=== PATIENT | male | born 1965 | race Caucasian/White ===

== ENCOUNTER → 2018-05-23 15:54 | Outpatient (CLI) | payer OTHER, SELFPAY ==
[2018-05-23 17:05] LABS: Hemoglobin A1c 7.4 % (4.2-6.3)
== END ==
PROVIDERS: Family Provider Family Medicine; PCP Family Medicine; Visit Provider Family Medicine
DX: E11.9 Type 2 diabetes mellitus without complications (principal)
CPT/HCPCS: 36415; 83036

== ENCOUNTER → 2018-08-01 10:22 | Outpatient (CLI) | payer OTHER, SELFPAY ==
[2018-08-01 12:26] LABS: Cholesterol 218 mg/dL (200); High Density Lipoprotein 55 mg/dL; Triglycerides 72 mg/dL; Very Low Density Lipoprotein 14 mg/dL (5-40)
== END ==
PROVIDERS: Family Provider Family Medicine; PCP Family Medicine; Referring Provider Family Medicine; Visit Provider Family Medicine
DX: E11.9 Type 2 diabetes mellitus without complications (principal)
CPT/HCPCS: 36415; 80061; 83036

== ENCOUNTER → 2018-10-29 08:10 | Outpatient (CLI) | payer OTHER, SELFPAY ==
[2018-10-29 10:04] LABS: Hemoglobin A1c 8.1 % (4.2-6.3)
[2018-10-29 10:22] LABS: Cholesterol 165 mg/dL (200); High Density Lipoprotein 57 mg/dL; Triglycerides 55 mg/dL; Very Low Density Lipoprotein 11 mg/dL (5-40)
== END ==
PROVIDERS: Family Provider Family Medicine; PCP Family Medicine; Referring Provider Family Medicine; Visit Provider Family Medicine
DX: E11.9 Type 2 diabetes mellitus without complications (principal)
CPT/HCPCS: 36415; 80061; 83036

== ENCOUNTER → 2019-08-23 11:08 | Outpatient (CLI) | payer OTHER, SELFPAY ==
[2019-08-15 16:27] VITALS: BMI 22.8
[2019-08-23 12:38] LABS: ALB/GLOB Ratio 1.4 RATIO (0.9-2.4); AST(SGOT) 11 U/L (15-37); Alanine Aminotransfer ALT/SGPT 22 U/L (16-61); Alkaline Phosphatase 64 U/L (45-117); Anion Gap 5 (5-15); BUN 17 mg/dL (7-18); BUN/Creat Ratio 17.1 RATIO (10-20); Calcium,Total 8.9 mg/dL (8.5-10.1); Chloride 104 mmol/L (98-107); Creatinine, Serum 0.99 mg/dL (0.70-1.30); EST Glomerular Filtration Rate 84 mL/min (>60); Est Glom Filt Rate - Afr Amer 101 mL/min (>60); Globulin 2.9 g/dL (2.2-4.2); Glucose 202 mg/dL (74-106); Potassium 4.7 mmol/L (3.5-5.1); Protein, Total 6.9 g/dL (6.4-8.2); Sodium Level 137 mmol/L (136-145)
[2019-08-23 12:56] LABS: Microalbumin,Random Urine 11.3 mg/L (NO RANGE EST.); Microalbumin:Creatinine Ratio 14.4 mg/g CRE (<30 mg/g CRE)
== END ==
PROVIDERS: Family Provider Family Medicine; PCP Family Medicine; Visit Provider Family Medicine
DX: E11.9 Type 2 diabetes mellitus without complications (principal)
CPT/HCPCS: 36415; 80053; 82043; 82570

== ENCOUNTER → 2019-11-17 08:32 | Outpatient (CLI) | payer OTHER, SELFPAY ==
[2019-11-14 16:45] VITALS: BMI 22.8
[2019-11-17 13:13] LABS: PSA,Total - Annual Screen 0.81 ng/mL (0.00-4.00)
== END ==
PROVIDERS: PCP Family Medicine; Referring Provider Family Medicine; Visit Provider Family Medicine
DX: R35.8 Other polyuria (principal); R35.0 Frequency of micturition
CPT/HCPCS: 36415; 84153; G0103

== ENCOUNTER → 2020-11-07 16:01 | Outpatient (CLI) | payer OTHER, SELFPAY ==
[2020-11-07 15:30] VITALS: BMI 23.1
[2020-11-07 17:09] LABS: Microalbumin:Creatinine Ratio 8.7 mg/g CRE (<30 mg/g CRE)
[2020-11-07 17:36] LABS: ALB/GLOB Ratio 1.4 RATIO (0.9-2.4); AST(SGOT) 10 U/L (15-37); Alanine Aminotransfer ALT/SGPT 26 U/L (16-61); Alkaline Phosphatase 60 U/L (45-117); Anion Gap 4 (5-15); BUN 17 mg/dL (7-18); BUN/Creat Ratio 18.3 RATIO (10-20); Calcium,Total 8.6 mg/dL (8.5-10.1); Chloride 104 mmol/L (98-107); Cholesterol 204 mg/dL (200); Creatinine, Serum 0.93 mg/dL (0.70-1.30); EST Glomerular Filtration Rate 90 mL/min (>60); Est Glom Filt Rate - Afr Amer 109 mL/min (>60); Globulin 2.9 g/dL (2.2-4.2); Glucose 139 mg/dL (74-106); High Density Lipoprotein 65 mg/dL; Potassium 4.2 mmol/L (3.5-5.1); Protein, Total 6.9 g/dL (6.4-8.2); Sodium Level 137 mmol/L (136-145); Triglycerides 89 mg/dL; Very Low Density Lipoprotein 18 mg/dL (5-40)
== END ==
PROVIDERS: PCP Family Medicine; Referring Provider Family Medicine; Visit Provider Family Medicine
DX: E11.9 Type 2 diabetes mellitus without complications (principal)
CPT/HCPCS: 36415; 80053; 80061; 82043; 82570

== ENCOUNTER 2021-12-04 08:50 | Outpatient (CLI) | payer OTHER, SELFPAY ==
[2021-12-04 12:23] LABS: ALB/GLOB Ratio 1.3 RATIO (0.9-2.4); AST(SGOT) 10 U/L (15-37); Alanine Aminotransfer ALT/SGPT 22 U/L (16-61); Alkaline Phosphatase 61 U/L (45-117); Anion Gap 4 (5-15); BUN 16 mg/dL (7-18); BUN/Creat Ratio 16.4 RATIO (10-20); Calcium,Total 8.7 mg/dL (8.5-10.1); Chloride 105 mmol/L (98-107); Cholesterol 175 mg/dL (200); Creatinine, Serum 0.98 mg/dL (0.70-1.30); EST Glomerular Filtration Rate 85 mL/min (>60); Est Glom Filt Rate - Afr Amer 102 mL/min (>60); Glucose 213 mg/dL (74-106); High Density Lipoprotein 67 mg/dL; Potassium 4.3 mmol/L (3.5-5.1); Sodium Level 137 mmol/L (136-145); Triglycerides 105 mg/dL; Very Low Density Lipoprotein 21 mg/dL (5-40)
[2021-12-04 12:33] LABS: Microalbumin,Random Urine < 5.0 mg/L (NO RANGE EST.)
== END 2021-12-04 23:59 | disposition home or self-care (01) ==
LOC: BIMLAB 08:51
PROVIDERS: PCP Family Medicine; Referring Provider Family Medicine; Visit Provider Family Medicine
DX: E11.9 Type 2 diabetes mellitus without complications (principal)
CPT/HCPCS: 36415; 80053; 80061; 82043; 82570

== ENCOUNTER → 2023-01-28 | Outpatient (CLI) | payer OTHER, SELFPAY ==
[2023-01-28 17:02] LABS: ALB/GLOB Ratio 1.4 RATIO (0.9-2.4); AST(SGOT) 9 U/L (15-37); Alanine Aminotransfer ALT/SGPT 22 U/L (16-61); Albumin, Serum 4.1 g/dL (3.2-5.0); Alkaline Phosphatase 64 U/L (45-117); Anion Gap 3 (5-15); BUN 18 mg/dL (7-18); BUN/Creat Ratio 17.5 RATIO (10-20); Calcium,Total 8.7 mg/dL (8.5-10.1); Chloride 106 mmol/L (98-107); Cholesterol 176 mg/dL (200); Creatinine, Serum 1.03 mg/dL (0.70-1.30); EST Glomerular Filtration Rate 79 mL/min (>60); Est Glom Filt Rate - Afr Amer 96 mL/min (>60); Globulin 2.9 g/dL (2.2-4.2); Glucose 217 mg/dL (74-106); High Density Lipoprotein 74 mg/dL; Potassium 4.3 mmol/L (3.5-5.1); Sodium Level 136 mmol/L (136-145); Triglycerides 122 mg/dL; Very Low Density Lipoprotein 24 mg/dL (5-40)
[2023-01-28 17:14] LABS: Microalbumin,Random Urine 10.3 mg/L (NO RANGE EST.); Microalbumin:Creatinine Ratio 19.8 mg/g CRE (<30 mg/g CRE)
== END | disposition home or self-care (01) ==
LOC: BIMLAB 15:28
PROVIDERS: PCP Family Medicine; Visit Provider Family Medicine
DX: E11.9 Type 2 diabetes mellitus without complications (principal)
CPT/HCPCS: 36415; 80053; 80061; 82043; 82570

== ENCOUNTER → 2023-03-29 | Outpatient (CLI) | payer OTHER, SELFPAY ==
[2023-03-29 17:05] LABS: Hemoglobin A1c 8.6 % (3.8-5.6)
== END | disposition home or self-care (01) ==
LOC: BIMLAB 15:57
PROVIDERS: PCP Family Medicine; Visit Provider Family Medicine
DX: E11.9 Type 2 diabetes mellitus without complications (principal)
CPT/HCPCS: 36415; 83036

== ENCOUNTER → 2024-03-29 | Outpatient (CLI) | payer OTHER, SELFPAY ==
[2024-03-29 17:12] LABS: ALB/GLOB Ratio 1.3 RATIO (0.9-2.4); AST(SGOT) 13 U/L (15-37); Alanine Aminotransfer ALT/SGPT 22 U/L (16-61); Albumin, Serum 3.9 g/dL (3.2-5.0); Alkaline Phosphatase 65 U/L (45-117); Anion Gap 5 (5-15); BUN 28 mg/dL (7-18); BUN/Creat Ratio 29.8 RATIO (10-20); Calcium,Total 8.8 mg/dL (8.5-10.1); Chloride 105 mmol/L (98-107); Cholesterol 329 mg/dL (200); Creatinine, Serum 0.94 mg/dL (0.70-1.30); EST Glomerular Filtration Rate 88 mL/min (>60); Est Glom Filt Rate - Afr Amer 106 mL/min (>60); Globulin 3.1 g/dL (2.2-4.2); Glucose 118 mg/dL (74-106); High Density Lipoprotein 69 mg/dL; Potassium 4.4 mmol/L (3.5-5.1); Sodium Level 136 mmol/L (136-145); Triglycerides 199 mg/dL; Very Low Density Lipoprotein 40 mg/dL (5-40)
== END | disposition home or self-care (01) ==
LOC: BIMLAB 16:11
PROVIDERS: PCP Family Medicine; Visit Provider Family Medicine
DX: E11.9 Type 2 diabetes mellitus without complications (principal)
CPT/HCPCS: 36415; 80053; 80061

== ENCOUNTER → 2024-06-29 | Outpatient (CLI) | payer OTHER, SELFPAY ==
--- NOTE | 2024-06-29 13:03 | RAD_ITS ---
STUDY: X-RAY - RIGHT HAND REASON FOR EXAM: Male, 58 years old. An pain. TECHNIQUE: 3 view(s) of the hand. COMPARISON: None. FINDINGS: Normal radiocarpal articulation. Normal distal radioulnar joint. Normal visualized carpal bones. Normal carpal articulations Normal carpometacarpal articulation of the thumb. Normal second through fifth carpometacarpal joints. Normal metacarpi. Normal metacarpophalangeal joint of the thumb. Normal interphalangeal joint of the thumb. Normal proximal and distal phalanges of the thumb. Normal metacarpophalangeal joints of the second through fifth fingers. Normal proximal and distal interphalangeal joints of the second through fifth fingers. Normal phalanges of the second through fifth fingers. The soft tissue structures are normal. RAD/Hand Min 3 Views IMPRESSION: Normal x-ray examination of the hand. Electronically Signed: Favian Perkins MD at 13:13 EDT ,
== END | disposition home or self-care (01) ==
PROVIDERS: PCP Family Medicine; Referring Provider Family Medicine; Visit Provider Family Medicine
DX: M79.641 Pain in right hand (principal)
CPT/HCPCS: 73130

== ENCOUNTER → 2025-05-18 | Outpatient (CLI) | payer OTHER, SELFPAY ==
[2025-05-18 17:19] LABS: AST(SGOT) 14 U/L (<=37); Alanine Aminotransfer ALT/SGPT 13 U/L (<=46); Albumin, Serum 4.3 g/dL (3.5-5.0); Alkaline Phosphatase 62 U/L (40-129); Anion Gap 13 (5-15); BUN 17 mg/dL (4-19); BUN/Creat Ratio 19.5 RATIO (10-20); Calcium,Total 9.3 mg/dL (7.6-11.0); Carbon Dioxide 23.0 mmol/L (21.0-32.0); Chloride 101 mmol/L (98-108); Cholesterol 325 mg/dL (<=200); Globulin 2.3 g/dL (2.2-4.2); Glucose 133 mg/dL (70-99); Low Density Lipoprotein Calc. 221 mg/dL; Potassium 3.9 mmol/L (3.3-5.1); Triglycerides 107 mg/dL; Very Low Density Lipoprotein 21 mg/dL (5-40); cholesterol:hdl ratio screen 3.94
--- OUTSIDE RECORDS SUMMARY | 2025-05-18 19:31 | XMS RPT_ITS | CCD ---
Author Organization [facility] Care Team Providers Care Cable Television Installer Name Role Phone Dr. Garrison Oviedo Primary Care Provider [phone] Dr. Garrison Oviedo Attending Provider [phone] Garrison Oviedo Referring Provider [phone] Garrison Oviedo Primary Care Unavailable Brown, Garrison R Attending Unavailable Brown, Garrison R Referring Unavailable Brown, Garrison R Primary Care Unavailable Brown, Garrison R Attending Unavailable Brown, Garrison R Referring Unavailable Brown, Garrison R Primary Care Unavailable Brown, Garrison R Attending Unavailable Brown, Garrison R Primary Care Unavailable Brown, Garrison R Attending Unavailable Brown, Garrison R Referring Unavailable Brown, Garrison R Attending Unavailable Brown, Garrison R Referring Unavailable Brown, Garrison R Primary Care Unavailable Brown, Garrison R Primary Care Unavailable Brown, Garrison R Attending Unavailable Brown, Garrison R Referring Unavailable Dr. Garrison Oviedo DO Primary Care Provider [phone] Dr. Garrison Oviedo DO Attending Provider [phone] Dr. Garrison Oviedo DO Referring Provider [phone] Allergies Allergy Classification Reported Allergen(s) Allergy Type Date of Onset Reaction(s) Facility (3 sources) Amoxicillin Drug Allergy 12-23-2022 Rash [facility] (1 source) Amoxicillin Drug Allergy 02-07-2025 [facility] Repository Medications Current Medications Medication Drug Class(es) Dates Sig (Normalized) Sig (Original) Blood-Glucose Meter (2 sources) Start: 04-03-2019 Blood-Glucose Meter Active 0 .ROUTE .MEDSUPPLY 1 April 03, 2019 12:00am As directed Blood-Glucose Meter misc (1 source) Start: 04-03-2019 Blood-Glucose Meter misc Active 0 .ROUTE .MEDSUPPLY 1 0 April 03, 2019 12:00am As directed dapagliflozin 10 mg oral tablet (20 sources) Sodium-Glucose Cotransporter 2 Inhibitor Start: 01-02-2025 take 1 tablet by mouth once daily Dapagliflozin Propanediol 10 mg tablet Active 10 mg PO DAILY 90 January 02, 2025 8:21am Start: 03-03-2022 End: 06-28-2024 take 1 tablet by mouth once daily Dapagliflozin Propanediol 10 mg tablet Discontinued 10 mg PO DAILY 90 March 11, 2022 11:59am December 23, 2022 5:42pm Start: 03-27-2020 End: 03-03-2022 take 1 tablet by mouth once daily Dapagliflozin Propanediol (Farxiga) 5 mg tablet Discontinued 5 mg PO DAILY 90 September 10, 2021 2:47pm March 03, 2022 4:32pm Flash Glucose Scanning Reade r (Freestyle Aysha 14 Day [place]) misc (1 source) Start: 09-30-2023 Flash Glucose Scanning [place] (Freestyle Aysha 14 Day [place]) misc Active 0 .Route 1 September 30, 2023 1:00am As directed Flash Glucose Sensor (Freestyle Aysha 14 Day Sensor) kit (6 sources) Start: 12-27-2024 Flash Glucose Sensor (Freestyle Aysha 14 Day Sensor) kit Active 0 .Route 1 December 27, 2024 9:32am Type 2 diabetes mellitus Type 2 diabetes mellitus without complications As directed Start: 07-17-2024 End: 12-27-2024 Flash Glucose Sensor (Freest yle Aysha 14 Day Sensor) kit Discontinued 0 .Route 1 July 17, 2024 9:24am December 27, 2024 9:32am Type 2 diabetes mellitus Type 2 diabetes mellitus without complications As directed Start: 04-10-2024 End: 07-17-2024 Flash Glucose Sensor (Freest yle Aysha 14 Day Sensor) kit Discontinued 0 .Route 1 April 10, 2024 5:07pm July 17, 2024 9:24am As directed Start: 12-29-2023 End: 04-10-2024 Flash Glucose Sensor (Freest yle Aysha 14 Day Sensor) kit Discontinued 0 .Route 1 December 29, 2023 4:29pm April 10, 2024 5:07pm As directed Start: 10-13-2023 End: 12-29-2023 Flash Glucose Sensor (Freest yle Aysha 14 Day Sensor) kit Discontinued 0 .Route 1 5 October 13, 2023 3:03pm December 29, 2023 4:30pm As directed Start: 09-30-2023 End: 10-13-2023 Flash Glucose Sensor (Freest yle Aysha 14 Day Sensor) kit Discontinued 0 .Route 1 0 September 30, 2023 1:00am October 13, 2023 3:04pm As directed metFORMIN hydrochloride 500 mg oral tablet (20 sources) Biguanide Start: 01-30-2025 take 2 tablets by mouth twice daily Metformin 500 mg tablet Active 1000 mg PO TWICE A DAY 240 5 January 30, 2025 8:23am Start: 12-29-2023 End: 01-30-2025 Metformin 500 mg tablet Disc ontinued 500 mg .ROUTE TWICE A DAY 240 December 29, 2023 4:35pm January 30, 2025 8:23am 500 mg twice a day; Start: 01-08-2023 End: 12-29-2023 take 2 tablets by mouth twice daily Metformin 500 mg tablet Discontinued 0 .ROUTE .COMPLEX 240 December 29, 2023 4:30pm December 29, 2023 4:36pm TAKE 2 TABLETS BY MOUTH TWICE A DAY Start: 11-19-2021 End: 01-08-2023 take 1 tablet by mouth twice daily Metformin 500 mg tablet Discontinued 500 mg PO TWICE A DAY 180 3 December 23, 2022 5:41pm January 08, 2023 10:01am Start: 08-20-2021 End: 11-19-2021 take 2 tablets by mouth twice daily Metformin 500 mg tablet Discontinued 1000 mg PO TWICE A DAY 360 3 August 20, 2021 4:27pm November 19, 2021 5:21pm Start: 08-20-2021 End: 11-19-2021 take 1000 mg by mouth twice daily Metformin Discontinued 1000 MG PO TWICE A DAY 360 August 20, 2021 4:27pm November 19, 2021 5:21pm Start: 08-29-2020 End: 08-20-2021 take 1 tablet by mouth twice daily Metformin 500 mg tablet Discontinued 500 mg PO TWICE A DAY 180 February 17, 2021 3:36pm August 20, 2021 4:28pm Start: 05-03-2018 End: 08-29-2020 take 1 tablet by mouth once daily Metformin 500 mg tablet Discontinued 500 mg PO daily 90 November 28, 2019 1:54pm May 09, 2020 4:28pm Start: 02-02-2018 End: 05-03-2018 take 1 tablet by mouth twice daily Metformin 500 mg tablet Discontinued 500 mg PO TWICE A DAY 180 February 02, 2018 4:52pm May 03, 2018 3:31pm rosuvastatin calcium 5 mg oral tablet (20 sources) HMG-CoA Reductase Inhibitor Start: 08-02-2018 End: 02-07-2025 take 1 tablet by mouth once daily Rosuvastatin (Crestor) 5 mg tablet Active 5 mg PO DAILY 90 February 07, 2025 3:43pm Completed/Discontinued Medications Medication Drug Class(es) Dates Sig (Normalized) Sig (Original) canagliflozin 100 mg oral tablet (15 sources) Sodium-Glucose Cotransporter 2 Inhibitor Start: 02-02-2018 End: 03-27-2020 take 1 tablet by mouth once daily in the morning Canagliflozin (Invokana) 100 mg tablet Discontinued 0 .ROUTE .COMPLEX 30 5 April 24, 2019 9:17am March 27, 2020 9:44am TAKE ONE TABLET BY MOUTH EVERY MORNING clotrimazole 10 mg oral lozenge (3 sources) Azole Antifungal Start: 04-06-2019 End: 02-13-2020 Clotrimazole 10 mg delia Discontinued 10 mg MUCOUS MEM ONCE 30 April 06, 2019 12:00am February 13, 2020 4:23pm one or two times a day doxycycline hyclate 100 mg oral capsule (1 source) Tetracycline-class Drug Start: 03-15-2025 End: 05-18-2025 take 2 capsules by mouth once Doxycycline Hyclate 100 mg capsule Discontinued 200 mg PO ONCE 2 0 March 15, 2025 12:00am May 18, 2025 3:30pm SITagliptin 25 mg oral tablet (20 sources) Dipeptidyl Peptidase 4 Inhibitor Start: 03-29-2024 End: 01-02-2025 take 1 tablet by mouth once Sitagliptin Phosphate 25 mg tablet Discontinued 25 mg PO ONCE 90 October 06, 2024 3:19pm January 02, 2025 8:21am Start: 02-02-2018 End: 03-29-2024 take 1 tablet by mouth once Sitagliptin Phosphate (Oct) 50 mg tablet Discontinued 50 mg PO ONCE 180 1 November 12, 2021 10:48am July 07, 2022 4:44pm Problems Active Problems Problem Classification Problem Date Documented Da te Episodic/Chronic Diabetes mellitus without complication (9 sources) Type 2 diabetes mellitus; Translations: [Type 2 diabetes mellitus without complications] Onset: 02-07-2025 05-09-2020 Chronic Genitourinary symptoms and ill-defined conditions (3 sources) Increased frequency of urination; Translations: [Frequency of micturition] 11-14-2019 Episodic Mycoses (3 sources) Candidiasis of mouth; Translations: [Candidal stomatitis] 05-16-2019 Episodic Other connective tissue disease (2 sources) Hand pain; Translations: [Pain in right hand] 06-28-2024 Episodic Other non-traumatic joint disorders (3 sources) Shoulder pain; Translations: [Pain in unspecified shoulder] 08-20-2021 Episodic Other non-traumatic joint disorders (3 sources) Pain in unspecified shoulder; Translations: [Pain in joint, shoulder region] 12-23-2022 Episodic Past or Other Problems Problem Classification Problem Date Documented Da te Episodic/Chronic Other connective tissue disease (1 source) Pain in right hand; Translations: [Pain in right hand] Onset: 07-20-2024 Episodic Results Test Name Value Interpretation Reference Range Facility Internal Medicine Office Vis margret 02-07-2025 Internal Medicine Office Visit [facility] [address] [place] [address] OFFICE VISIT Date of Service: 02/07/25 MR#: [id number] Acct: [id number] Name: MARIBELLELENA W Rep #: [id number] : 1965 Provider: Dr. Garrison Soares own, DO Age/Sex: 59/M Location: [facility] Status: Signed Intake Vital Signs 11/08/24 09:33 02/07/25 15:26 Height 5 ft 9 in 5 ft 9 in Weight: 160 lb 156 lb 8 oz BMI 23.6 23.1 BP 118/64 112/76 Blood Pressure Location Lt brachial Rt brachial Position Sitting Sitting Respiration 16 16 Pulse 66 79 Pulse Source Monitor Monitor Temp 97.1 F L 96.7 F L Temp Source Temporal Temporal Pulse Oximetry (%) 99 98 Oxygen Delivery Method room air room air Intake Visit Reasons: 3 M FU Chief Complaint: 3 M FU Surgical Scrub Technologist Required: No Accompanied by: Self Is patient in pain?: No Allergies amoxicillin Allergy (Intermediate, Verified 02/07/25 15:18) Rash Medications ???Medication ???Instructions ???Recorded ???Confirmed ???Type blood-glucose meter #1 ea 04/03/19 02/07/25 Rx blood sugar diagnostic (FreeStyle #100 ea 04/07/19 02/07/25 Rx Test strips) lancets 28 gauge (FreeStyle #100 ea 04/07/19 02/07/25 Rx Lancets) flash glucose scanning reader #1 ea 09/30/23 02/07/25 Rx (FreeStyle Aysha 14 Day [place]) flash glucose sensor (FreeStyle #1 ea 12/27/24 02/07/25 Rx Aysha 14 Day Sensor kit) dapagliflozin propanediol 10 mg 10 mg PO DAILY #90 tabs 01/02/25 0 02/07/25 Rx tablet metformin 500 mg tablet 1,000 mg (2 x 500 mg) PO BID #240 01/30/25 02/07/25 Rx TABLETS rosuvastatin 5 mg tablet (Crestor) 5 mg PO DAILY #90 tabs 02/07/25 02/07/25 Rx Have you fallen in the past year?: No Nurse's Note: crestor needs refilled [facility] Medical History Shoulder pain Hyperlipemia Type 2 diabetes mellitus Surgical History History of tonsillectomy Family History Mother Diabetes Father Dementia Social History Smoking Status: Never smoker alcohol intake: current alcohol intake frequency: a few times a week Alcohol type: beer substance use type: does not use what type of physical activity do you participate in: none HPI HPI Chief Complaint: 3 M FU Details: ELENA REYNA, is a 59 M who presents to the office today for a follow-up on his diabetes. He has a constant glucose monitor and he has been very careful in decreasing the amount of carbohydrates he eats. ROS Const Constitutional: No body ache, excessive sweating, fatigue, fever(s), frequent falls, headache(s), snoring, weakness, weight change, sleep problems or change in appetite Eyes Eyes: No blurry vision, change in vision, eye pain or Light sensitivity ENT ENT: No abnormal hearing, ear or mastoid pain, tinnitus, nasal congestion, headache(s), neck pain or sore throat Resp Respiratory: No cough, shortness of breath, snoring or wheezing Cardio Cardiology: No chest pain at rest, chest pain with exertion, excessive sweating, shortness of breath, dyspnea on exertion, lightheadedness, orthopnea or palpitations Gastro GI: No abdominal pain, change in bowel habits, constipation, cramping, diarrhea, nausea/dyspepsia or vomiting Genitourinary Male: No burning urination, painful urination, urinary incontinence, urinary frequency or blood in urine Musc Musculoskeletal: No abnormal gait, joint pain, back pain, limited range of motion, neck pain, numbness, stiffness, tingling or Arthritis Skin Skin: No dry skin, redness, lesions, itchy eyes, rash or wounds Neuro Neurology: No abnormal gait, abnormal hearing, abnormal speech, dizziness, weakness, frequent falls, headache(s), memory loss, numbness or tingling Psych Psychiatric: No anxiety, No change in appetite, No depression, No memory loss and No Thoughts of harming yourself/Others Endo Endocrine: No cold intolerance, excessive sweating, fatigue, flushing, heat intolerance, increased thirst/drinking, increased hunger or weight change Aller/Imm Allergy/Immunologic: No itchy eyes, seasonal allergy symptoms, hives or wheezing Moris/Lymp Hematologic/Lymphatic: No easy bleeding, easy bruising or enlarged lymph nodes Exam Const General: cooperative, comfortable and no acute distress Nutritional Appearance: average body habitus and well nourished Orientation: alert and oriented x3 Limitations: mental status not altered [facility] Head: normal to inspection Ears: hearing grossly normal bilaterally Nose: external nose normal Eyes General: appearance normal, both eyes and all related structures Neck Neck: normal visual inspection and full ROM Resp Effort Inspection: (more content not included)... Normal [facility] Laboratory - Hematology and Cell countsOrdered By: Garrison Oviedo on 02-07-2025 HbA1c (Bld) [Mass fraction] 6.8 % High 4.2-6.3 [facility] Internal Medicine Office Vis itojeremy 11-08-2024 Internal Medicine Office Visit [facility] [address] [place], [place] [address] OFFICE VISIT Date of Service: 11/08/24 MR#: [id number] Acct: [id number] Name: ELENA REYNA Rep #: [id number] : 1965 Provider: Dr. Garrison Soares own, DO Age/Sex: 59/M Location: [facility] Status: Signed Intake Vital Signs 06/28/24 15:58 11/08/24 09:33 Height 5 ft 9 in 5 ft 9 in Weight: 151 lb 160 lb BMI 22.3 23.6 BP 112/70 118/64 Blood Pressure Location Lt brachial Lt brachial Position Sitting Sitting Respiration 14 16 Pulse 78 66 Pulse Source Monitor Monitor Temp 98.6 F 97.1 F L Temp Source Temporal Temporal Pulse Oximetry (%) 97 99 Oxygen Delivery Method room air room air Intake Visit Reasons: 3 M FU Chief Complaint: 3 M FU Surgical Scrub Technologist Required: No Accompanied by: Self Is patient in pain?: No Allergies amoxicillin Allergy (Intermediate, Verified 11/08/24 09:24) Rash Medications ???Medication ???Instructions ???Recorded ???Confirmed ???Type blood-glucose meter #1 ea 04/03/19 11/08/24 Rx blood sugar diagnostic (FreeStyle #100 ea 04/07/19 11/08/24 Rx Test strips) lancets 28 gauge (FreeStyle #100 ea 04/07/19 11/08/24 Rx Lancets) flash glucose scanning reader #1 ea 09/30/23 11/08/24 Rx (FreeStyle Aysha 14 Day [place]) metformin 500 mg tablet 500 mg .Route BID #240 tabs 12/29/23 11/08/24 Rx rosuvastatin 5 mg tablet (Crestor) 5 mg PO DAILY #90 tabs 01/20/24 11/08/24 Rx flash glucose sensor (FreeStyle #1 ea 07/17/24 11/08/24 Rx Aysha 14 Day Sensor kit) sitagliptin phosphate 25 mg tablet 25 mg PO ONCE #90 tabs 10/06/24 11/08/24 Rx PFSH Medical History Shoulder pain Hyperlipemia Type 2 diabetes mellitus Surgical History History of tonsillectomy Family History Mother Diabetes Father Dementia Social History Smoking Status: Never smoker alcohol intake: current alcohol intake frequency: a few times a week Alcohol type: beer substance use type: does not use what type of physical activity do you participate in: none HPI HPI Chief Complaint: 3 M FU Details: ELENA REYNA, is a 59 M who presents to the office today for a 3-month follow-up exam on his diabetes. He says he feels quite well. He still has a little stiffness in the right hand a problem he complained about at his last visit. ROS Const Constitutional: No body ache, chills, excessive sweating, fatigue, fever(s), frequent falls, headache(s), snoring, weakness, weight change or change in appetite Eyes Eyes: No blurry vision, change in vision, eye pain or Light sensitivity ENT ENT: No abnormal hearing, ear or mastoid pain, tinnitus, nasal congestion, headache(s), neck pain or sore throat Resp Respiratory: No cough, shortness of breath, snoring or wheezing Cardio Cardiology: No chest pain at rest, chest pain with exertion, excessive sweating, dyspnea on exertion, lightheadedness, orthopnea or palpitations Gastro GI: No abdominal pain, change in bowel habits, constipation, cramping, diarrhea, nausea/dyspepsia or vomiting Genitourinary Male: No burning urination, painful urination, urinary incontinence or urinary frequency Musc Musculoskeletal: No abnormal gait, joint pain, back pain, limited range of motion, muscle weakness, neck pain or numbness Skin Skin: No dry skin, redness, lesions, itchy eyes, rash or wounds Neuro Neurology: No abnormal gait, abnormal hearing, weakness, frequent falls, headache(s), memory loss or numbness Psych Psychiatric: No anxiety, No change in appetite, No depression, No memory loss and No Thoughts of harming yourself/Others Endo Endocrine: No cold intolerance, excessive sweating, fatigue, flushing, heat intolerance, increased thirst/drinking, increased hunger or weight change Aller/Imm Allergy/Immunologic: No itchy eyes, seasonal allergy symptoms, hives or wheezing Moris/Lymp Hematologic/Lymphatic: No easy bleeding or easy bruising Exam Const General: cooperative, comfortable and no acute distress Nutritional Appearance: average body habitus and well nourished Orientation: alert and oriented x3 Limitations: mental status not altered [facility] Head: normal to inspection Ears: hearing grossly normal bilaterally Nose: external nose normal Eyes General: appearance normal, both eyes and all related structures Neck Neck: normal visual inspection and full ROM Resp Effort Inspection: normal respiratory effort, able to speak in complete sentences, symmetric chest movement, normal respiratory pattern, no audible wheezes and no cough Auscultation: Bilateral: Clear to Auscultation Cardio Palpat (more content not included)... Normal [facility] Hand Min 3 Viewson 4 Hand Min 3 Views [facility] [address] [place], [place] [id number] Hand Min 3 Views MR#: [id number] Acct: [id number] Name: ELENA REYNA Rep #: [id number] : 1965 M 58 From: Favian Perkins MD PCP: Dr. Garrison Oviedo, Status: [facility] Study: Hand Min 3 Views Date of Exam: 06/29/24 Exam# [id number] [place]ing [place]: [place] [id number] STUDY: X-RAY - RIGHT HAND REASON FOR EXAM: Male, 58 years old. An pain. TECHNIQUE: 3 view(s) of the hand. COMPARISON: None. FINDINGS: Normal radiocarpal articulation. Normal distal radioulnar joint. Normal visualized carpal bones. Normal carpal articulations Normal carpometacarpal articulation of the thumb. Normal second through fifth carpometacarpal joints. Normal metacarpi. Normal metacarpophalangeal joint of the thumb. Normal interphalangeal joint of the thumb. Normal proximal and distal phalanges of the thumb. Normal metacarpophalangeal joints of the second through fifth fingers. Normal proximal and distal interphalangeal joints of the second through fifth fingers. Normal phalanges of the second through fifth fingers. The soft tissue structures are normal. RAD/Hand Min 3 Views IMPRESSION: Normal x-ray examination of the hand. Electronically Signed: Favian Perkins MD at 13:13 EDT , CC: Dr. Garrison Oviedo DO Mimeograph Operator: Signed Normal [facility] Internal Medicine Office Vis margret 06-28-2024 Internal Medicine Office Visit [facility] [place] [address] [place] [address] OFFICE VISIT Date of Service: 06/28/24 MR#: [id number] Acct: [id number] Name: ELENA REYNA Rep #: [id number] : 1965 Provider: Dr. Garrison sequeira, DO Age/Sex: 58/M Location: [facility] Status: Signed Intake Vital Signs 03/29/24 15:43 06/28/24 15:58 Height 5 ft 9 in 5 ft 9 in Weight: 149 lb 151 lb BMI 21.9 22.3 BP 112/74 112/70 Blood Pressure Location Lt brachial Lt brachial Position Sitting Sitting Respiration 14 14 Pulse 82 78 Pulse Source Monitor Monitor Temp 99 F 98.6 F Temp Source Temporal Temporal Pulse Oximetry (%) 98 97 Oxygen Delivery Method room air room air Intake Visit Reasons: 3 M FU Chief Complaint: 3 M FU Surgical Scrub Technologist Required: No Is patient in pain?: No Allergies amoxicillin Allergy (Intermediate, Verified 06/28/24 15:51) Rash Medications ???Medication ???Instructions ???Recorded ???Confirmed ???Type blood-glucose meter #1 ea 04/03/19 06/28/24 Rx blood sugar diagnostic (FreeStyle #100 ea 04/07/19 06/28/24 Rx Test strips) lancets 28 gauge (FreeStyle #100 ea 04/07/19 06/28/24 Rx Lancets) flash glucose scanning reader #1 ea 09/30/23 06/28/24 Rx (FreeStyle Aysha 14 Day [place]) metformin 500 mg tablet 500 mg .Route BID #240 tabs 12/29/23 06/28/24 Rx rosuvastatin 5 mg tablet (Crestor) 5 mg PO DAILY #90 tabs 01/20/24 06/28/24 Rx sitagliptin phosphate 25 mg tablet 25 mg PO ONCE #30 tabs 03/29/24 06/28/24 Rx flash glucose sensor (FreeStyle #1 ea 04/10/24 06/28/24 Rx Aysha 14 Day Sensor kit) Nurse's Note: R hand . Stoved fingers was playing softball 2 months ago and is still having issues. [facility] Medical History Shoulder pain Hyperlipemia Type 2 diabetes mellitus Surgical History History of tonsillectomy Family History Mother Diabetes Father Dementia Social History Smoking Status: Never smoker alcohol intake: current alcohol intake frequency: a few times a week Alcohol type: beer substance use type: does not use what type of physical activity do you participate in: none HPI HPI Chief Complaint: 3 M FU Details: ELENA REYNA, is a 58 M who presents to the office today for a recheck on his diabetes. The last time he was in the office his hemoglobin A1c was 6.3 and because it was so low I cut his dose of Farxiga to 5 mg. His sugars remained low according to the patient and so several weeks ago he stopped the Farxiga entirely. He has gained about a pound of weight and feels quite well. He says his sugars have been consistently still quite good. ROS Const Constitutional: No body ache, chills, excessive sweating, fatigue, fever(s), frequent falls, headache(s), snoring, weakness, sleep problems or change in appetite Eyes Eyes: No blurry vision, change in vision, eye pain or Light sensitivity ENT ENT: No abnormal hearing, ear or mastoid pain, tinnitus, nasal congestion, headache(s), neck pain or sore throat Resp Respiratory: No cough, shortness of breath, snoring or wheezing Cardio Cardiology: No chest pain at rest, chest pain with exertion, excessive sweating, shortness of breath, dyspnea on exertion, lightheadedness, orthopnea or palpitations Gastro GI: No abdominal pain, change in bowel habits, constipation, cramping, diarrhea, nausea/dyspepsia or vomiting Genitourinary Male: No burning urination, painful urination, urinary incontinence or urinary frequency Musc Musculoskeletal: No abnormal gait, joint pain, back pain, limited range of motion, neck pain or numbness Skin Skin: No dry skin, redness, lesions, itchy eyes, rash or wounds Neuro Neurology: No abnormal gait, abnormal hearing, weakness, frequent falls, headache(s), memory loss or numbness Psych Psychiatric: No anxiety, No change in appetite, No depression, No memory loss and No Thoughts of harming yourself/Others Endo Endocrine: No cold intolerance, excessive sweating, fatigue, flushing, heat intolerance, increased thirst/drinking or increased hunger Aller/Imm Allergy/Immunologic: No itchy eyes, seasonal allergy symptoms, hives or wheezing Moris/Lymp Hematologic/Lymphatic: No easy bleeding, easy bruising, enlarged lymph nodes or other Exam Const General: cooperative, comfortable and no acute distress Nutritional Appearance: average body habitus and well nourished Orientation: alert and oriented x3 Limitations: mental status not altered [facility] Head: normal to inspection Ears: hearing grossly normal bilaterally Nose: external nose normal Eyes General: (more content not included)... Normal [facility] Comprehensive Metabolic Prof ilon 03-29-2024 Albumin [Mass/Vol] 3.9 g/dL Normal 3.2-5.0 [facility] Comment on above: Performed By: #### L 500.3260, L500.4100 #### [facility] [address] [place], [place], [id number] Albumin/Globulin [Mass ratio] 1.3 {ratio} Normal 0.9-2.4 [facility] Comment on above: Performed By: #### L 500.4050, L500.4100 #### [facility] [address] [place], [address] ALK P 65 U/L Normal 45-117 [facility] Comment on above: Performed By: #### L 500.4050, L500.4100 #### [facility] [address] [place], [address] ALT [Catalytic activity/Vol] 22 U/L Normal 16-61 [facility] Comment on above: Performed By: #### L 500.4050, L500.4100 #### [facility] [address] [place], [address] AST [Catalytic activity/Vol] 13 U/L Low 15-37 [facility] Comment on above: Performed By: #### L 500.4050, L500.4100 #### [facility] [address] [place], [address] Bilirubin [Mass/Vol] 0.30 mg/dL Normal 0.20-1.00 [facility] Comment on above: Result Comment: For patients on eltrombopag therapy, use of Dimension Haworth TBIL is not recommended. Performed By: #### L 500.4050, L500.4100 #### [facility] [address] [place], [address] BUN/CRE 29.8 RATIO High 10-20 [facility] Comment on above: Performed By: #### L 500.4050, L500.4100 #### [facility] [address] [place], [address] CA,Total 8.8 mg/dL Normal 8.5-10.1 [facility] Comment on above: Performed By: #### L 500.4050, L500.4100 #### [facility] [address] [place], [address] Chloride [Moles/Vol] 105 mmol/L Normal 98-107 [facility] Comment on above: Performed By: #### L 500.4050, L500.4100 #### [facility] [address] [place], [address] CO2 [Moles/Vol] 26.0 mmol/L Normal 21.0-32.0 [facility] Comment on above: Performed By: #### L 500.4050, L500.4100 #### [facility] [address] [place], [address] Creatinine [Mass/Vol] 0.94 mg/dL Normal 0.70-1.30 [facility] Comment on above: Result Comment: The validity of the calculated GFR GFRAA in patients over 70 years has not been determined. Clinical correlation is essential. Performed By: #### L 500.4050, L500.4100 #### [facility] [address] [place], [address] EST GFR - AA 106 mL/min Normal >60 [facility] Comment on above: Result Comment: Afri can French GFR Calc Performed By: #### L 500.4050, L500.4100 #### [facility] [address] [place], [address] GAP 5 Normal 5-15 [facility] Comment on above: Performed By: #### L 500.4050, L500.4100 #### [facility] [address] [place], [address] GFR/1.73 sq M.predicted among non-blacks MDRD (S/P/Bld) [Vol rate/Area] 88 mL/min/{1.73_m2} Normal >60 [facility] Comment on above: Result Comment: Non- GFR Calc Performed By: #### L 500.4050, L500.4100 #### [facility] [address] [place], [address] Globulin (S) [Mass/Vol] 3.1 g/dL Normal 2.2-4.2 [facility] Comment on above: Performed By: #### L 500.4050, L500.4100 #### [facility] [address] [place], [address] Glucose [Mass/Vol] 118 mg/dL High 74-106 [facility] Comment on above: Result Comment: Fast ing Glucose result from 100 to 125 mg/dL suggests IMPAIRED HOMEOSTASIS per A.D.A. criteria. Performed By: #### L 500.4050, L500.4100 #### [facility] [address] [place], [address] Potassium [Moles/Vol] 4.4 mmol/L Normal 3.5-5.1 [facility] Comment on above: Performed By: #### L 500.4050, L500.4100 #### [facility] [address] [place], [address] Sodium [Moles/Vol] 136 mmol/L Normal 136-145 [facility] Comment on above: Performed By: #### L 500.4050, L500.4100 #### [facility] [address] [place], [address] T PROT 7.0 g/dL Normal 6.4-8.2 [facility] Comment on above: Performed By: #### L 500.4050, L500.4100 #### [facility] [address] [place], [address] Urea nitrogen [Mass/Vol] 28 mg/dL High 7-18 [facility] Comment on above: Performed By: #### L 500.4050, L500.4100 #### [facility] [address] [place], [address] Internal Medicine Office Vis margret 03-29-2024 Internal Medicine Office Visit [facility] [address] [place] [address] [place] [address] OFFICE VISIT Date of Service: 03/29/24 MR#: [id number] Acct: [id number] Name: ELENA REYNA Rep #: [id number] : 1965 Provider: Dr. Garrison sequeira, DO Age/Sex: 58/M Location: [facility] Status: Signed Intake Vital Signs 12/29/23 16:23 03/29/24 15:43 Height 5 ft 5.9 in 5 ft 9 in Weight: 152 lb 8 oz 149 lb BMI 24.7 21.9 BP 130/76 H 112/74 Blood Pressure Location Lt brachial Lt brachial Position Sitting Sitting Respiration 16 14 Pulse 80 82 Pulse Source Monitor Monitor Temp 98.0 F 99 F Temp Source Temporal Temporal Pulse Oximetry (%) 98 98 Oxygen Delivery Method room air room air Intake Visit Reasons: 3 M FU Chief Complaint: 3 M FU Surgical Scrub Technologist Required: No Is patient in pain?: No Allergies amoxicillin Allergy (Intermediate, Verified 03/29/24 15:36) Rash Medications ???Medication ???Instructions ???Recorded ???Confirmed ???Type blood-glucose meter #1 ea 04/03/19 03/29/24 Rx blood sugar diagnostic (FreeStyle #100 ea 04/07/19 03/29/24 Rx Test strips) lancets 28 gauge (FreeStyle #100 ea 04/07/19 03/29/24 Rx Lancets) flash glucose scanning reader #1 ea 09/30/23 03/29/24 Rx (FreeStyle Aysha 14 Day [place]) dapagliflozin propanediol 10 mg 10 mg PO DAILY #90 tabs 12/29/23 03/29/24 Rx tablet flash glucose sensor (FreeStyle #1 ea 12/29/23 03/29/24 Rx Aysha 14 Day Sensor kit) metformin 500 mg tablet 500 mg .Route BID #240 tabs 12/29/23 03/29/24 Rx rosuvastatin 5 mg tablet (Crestor) 5 mg PO DAILY #90 tabs 01/20/24 03/29/24 Rx sitagliptin phosphate 25 mg tablet 25 mg PO ONCE #30 tabs 03/29/24 03/29/24 Rx PFSH Medical History Shoulder pain Hyperlipemia Type 2 diabetes mellitus Surgical History History of tonsillectomy Family History Mother Diabetes Father Dementia Social History Smoking Status: Never smoker alcohol intake: current alcohol intake frequency: a few times a week Alcohol type: beer substance use type: does not use what type of physical activity do you participate in: none HPI HPI Chief Complaint: 3 M FU Details: ELENA REYNA, is a 58 M who presents to the office today for a recheck on his diabetes. He says since he has been on the constant glucose monitor he is much more able to monitor his food intake and find out which foods cause hyperglycemia. He says he is rarely been over 120 when he is checked his blood sugars. ROS Const Constitutional: No body ache, chills, excessive sweating, fatigue, fever(s), frequent falls, headache(s), snoring, weakness, sleep problems or change in appetite Eyes Eyes: No blurry vision, change in vision, eye pain or Light sensitivity ENT ENT: No abnormal hearing, ear or mastoid pain, tinnitus, nasal congestion, headache(s), neck pain or sore throat Resp Respiratory: No cough, shortness of breath, snoring or wheezing Cardio Cardiology: No chest pain at rest, chest pain with exertion, excessive sweating, shortness of breath, dyspnea on exertion, lightheadedness, orthopnea or palpitations Gastro GI: No abdominal pain, change in bowel habits, constipation, cramping, diarrhea, nausea/dyspepsia or vomiting Genitourinary Male: No burning urination, painful urination, urinary incontinence or urinary frequency Musc Musculoskeletal: No abnormal gait, joint pain, back pain, limited range of motion, neck pain or numbness Skin Skin: No dry skin, redness, lesions, itchy eyes, rash or wounds Neuro Neurology: No abnormal gait, abnormal hearing, weakness, frequent falls, headache(s), memory loss or numbness Psych Psychiatric: No anxiety, No change in appetite, No depression, No memory loss and No Thoughts of harming yourself/Others Endo Endocrine: No cold intolerance, excessive sweating, fatigue, flushing, heat intolerance, increased thirst/drinking or increased hunger Aller/Imm Allergy/Immunologic: No itchy eyes, seasonal allergy symptoms, hives or wheezing Moris/Lymp Hematologic/Lymphatic: No easy bleeding, easy bruising, enlarged lymph nodes or other Exam Const General: cooperative, comfortable and no acute distress Nutritional Appearance: average body habitus and well nourished Orientation: alert and oriented x3 Limitations: mental status not altered [facility] Head: normal to inspection Ears: hearing grossly normal bilaterally Nose: external nose normal Eyes General: appearance normal, both eyes and all related structures Neck Neck: normal visual inspection and full ROM Resp Effort Inspec (more content not included)... Normal [facility] Lipid Profileon 03-29-2024 Cholesterol [Mass/Vol] 329 mg/dL High 200 [facility] Comment on above: Result Comment: <200 mg/dL Desirable 200-240 mg/dL Borderline >240 mg/dL High Risk Performed By: #### L 500.4050, L500.4100 #### [facility] [address] [place], [address] Cholesterol in HDL [Mass/Vol] 69 mg/dL Normal [facility] Comment on above: Result Comment: The drugs N-Acetylcysteine and Metamizole may falsely depress this assay. Reference Range HDL <40 mg/dL Low HDL Cholesterol HDL >or= 60 mg/dL High HDL Cholesterol Performed By: #### L 500.4050, L500.4100 #### [facility] [address] [place], [address] Cholesterol in LDL [Mass/Vol] 220 mg/dL High 0-130 [facility] Comment on above: Performed By: #### L 500.4050, L500.4100 #### [facility] [address] [place], [address] Cholesterol in VLDL [Mass/Vol] 40 mg/dL Normal 5-40 [facility] Comment on above: Performed By: #### L 500.4050, L500.4100 #### [facility] [address] [place], [address] Triglyceride [Mass/Vol] 199 mg/dL Normal [facility] Comment on above: Result Comment: The drugs N-Acetylcysteine and Metamizole may falsely depress this assay. Serum Triglycerides Reference Interval Normal <150 mg/dL Borderline high 150 - 199 mg/dL High 200 - 499 mg/dL Very High > or = 500 mg/dL Performed By: #### L 500.4050, L500.4100 #### [facility] [address] [place], [address] Whole blood hemoglobin A1c/t otal hemoglobin ratio (mass fraction)Ordered By: Dr. Oviedo on 03-29-2023 HbA1c (Bld) [Mass fraction] 8.6 % 3.8-5.6 [facility] Comment on above: Normal < 5.7 % Predi abetic 5.7 - 6.4 % Diabetic >or= 6.5 % Please note range changes. Basophil percentageOrdered B y: Dr. Oviedo on 01-28-2023 Bilirubin [Mass/Vol] 0.30 mg/dL 0.20-1.00 [facility] Comment on above: For patients on eltr ombopag therapy, use of Dimension Haworth TBIL is not recommended. Chloride [Moles/Vol] 106 mmol/L 98-107 [facility] Cholesterol [Mass/Vol] 176 mg/dL <200 [facility] Comment on above: <200 mg/dL Desirable 200-240 mg/dL Borderline >240 mg/dL High Risk Glucose [Mass/Vol] 217 mg/dL 74-106 [facility] Comment on above: Glucose result great er than or equal to 200 mg/dLsuggests DIABETES MELLITUS per A.D.A. criteria. Potassium [Moles/Vol] 4.3 mmol/L 3.5-5.1 [facility] Protein [Mass/Vol] 7.0 g/dL 6.4-8.2 [facility] Sodium [Moles/Vol] 136 mmol/L 136-145 [facility] Triglyceride [Mass/Vol] 122 mg/dL <199 [facility] Comment on above: The drugs N-Acetylcy steine and Metamizole may falsely depress this assay.Serum Triglycerides Reference Interval Normal <150 mg/dL Borderline high 150 - 199 mg/dL High 200 - 499 mg/dL Very High > or = 500 mg/dL Laboratory - Chemistry and C hemistry - challengeOrdered By: Dr. Oviedo on 01-28-2023 ALP [Catalytic activity/Vol] 64 U/L 45-117 [facility] ALT [Catalytic activity/Vol] 22 U/L 16-61 [facility] CO2 [Moles/Vol] 27.0 mmol/L 21.0-32.0 [facility] Globulin (S) [Mass/Vol] 2.9 g/dL 2.2-4.2 [facility] Urea nitrogen/Creatinine [Mass ratio] 17.5 mg/mg 10-20 [facility] No Panel InformationOrdered By: Dr. Oviedo on 01-28-2023 Estimated GFR (MDRD) Amer 96 mL/min >60 [facility] Comment on above: GFR Calc Estimated GFR (MDRD) Non-Af Amer 79 mL/min >60 [facility] Comment on above: Non- GFR Calc Urine Microalbumin/Creatinin e Ratio 19.8 mg/g CRE <30 [facility] Serum or plasma albumin getachew urement (mass/volume)Ordered By: Dr. Oviedo on 01-28-2023 Albumin [Mass/Vol] 4.1 g/dL 3.2-5.0 [facility] Serum or plasma albumin/glob ulin mass ratioOrdered By: Dr. Oviedo on 01-28-2023 Albumin/Globulin [Mass ratio] 1.4 {ratio} 0.9-2.4 [facility] Serum or plasma calcium getachew urement (mass/volume)Ordered By: Dr. Oviedo on 01-28-2023 Calcium [Mass/Vol] 8.7 mg/dL 8.5-10.1 [facility] Serum or plasma cholesterol in HDL measurement (mass/volume)Ordered By: Dr. Oviedo on 01-28-2023 Cholesterol in HDL [Mass/Vol] 74 mg/dL >40 [facility] Comment on above: The drugs N-Acetylcy steine and Metamizole may falsely depress this assay. Reference Range HDL <40 mg/dL Low HDL Cholesterol HDL >or= 60 mg/dL High HDL Cholesterol Serum or plasma cholesterol in VLDL measurement (mass/volume)Ordered By: Dr. Oviedo on 01-28-2023 Cholesterol in VLDL [Mass/Vol] 24 mg/dL 5-40 [facility] Serum or plasma creatinine m easurement (mass/volume)Ordered By: Dr. Oviedo on 01-28-2023 Creatinine [Mass/Vol] 1.03 mg/dL 0.70-1.30 [facility] Comment on above: The validity of the calculated GFR & GFRAA in patients over 70 years has not been determined. Clinical correlation is essential. Serum or plasma low density lipoprotein (LDL) cholesterol measurement (mass/volume)Ordered By: Dr. Oviedo on 01-28-2023 Cholesterol in LDL [Mass/Vol] 78 mg/dL 0-130 [facility] Serum or plasma urea nitroge n measurement (mass/volume)Ordered By: Dr. Oviedo on 01-28-2023 Urea nitrogen [Mass/Vol] 18 mg/dL 7-18 [facility] Thin prep Papanicolaou smear with manual screeningOrdered By: Dr. Oviedo on 01-28-2023 Thin prep Papanicolaou smear with manual screening 9 U/L 15-37 [facility] Thin prep Papanicolaou smear with manual screening 3 5-15 [facility] Thin prep Papanicolaou smear with manual screening 10.3 mg/L NO RANGE EST. [facility] Urine creatinine measurement (mass/volume)Ordered By: Dr. Oviedo on 01-28-2023 Creatinine (U) [Mass/Vol] 52.10 mg/dL NO RANGE EST. [facility] - Hematology and Cell countson 12-23-2022 HbA1c (Bld) [Mass fraction] 7.8 % 4.2-6.3 [facility] Vital Signs Date Time Vital Sign Value Performing Clinician Brodie aranda 05-18-2025 15:25-0400 Body height 175.[address] Garrison Oviedo DO Work Phone: [facility] 05-18-2025 15:25-0400 Body mass index (BMI) [Ratio] 23.1 kg/m2 Dr. Garrison Oviedo DO Work Phone: [facility] 05-18-2025 15:25-0400 Body temperature 98 [degF] Dr. Garrison Oviedo DO Work Phone: [facility] 05-18-2025 15:25-0400 Body weight 71.[address] Garrison Oviedo DO Work Phone: [facility] 05-18-2025 15:25-0400 Diastolic blood pressure 72 mm[Hg] Dr. Garrison Oviedo DO Work Phone: [facility] 05-18-2025 15:25-0400 Heart rate 82 /min Dr. Garrison Oviedo DO Work Phone: [facility] 05-18-2025 15:25-0400 Respiratory rate 18 /min Dr. Garrison Oviedo DO Work Phone: [facility] 05-18-2025 15:25-0400 SaO2% (BldA) [Mass fraction] 99 % Dr. Garrison Oviedo DO Work Phone: [facility] 05-18-2025 15:25-0400 Systolic blood pressure 138 mm[Hg] Dr. Garrison Oviedo DO Work Phone: [facility] 02-07-2025 15:26-0400 Body mass index (BMI) [Ratio] 23.1 kg/m2 Dr. Garrison Oviedo DO Work Phone: [facility] 02-07-2025 15:26-0400 Body temperature 96.7 [degF] Dr. Garrison Oviedo DO Work Phone: [facility] 02-07-2025 15:26-0400 Body weight 70.[address] Garrison Oviedo DO Work Phone: [facility] 02-07-2025 15:26-0400 Diastolic blood pressure 76 mm[Hg] Dr. Garrison Oviedo DO Work Phone: [facility] 02-07-2025 15:26-0400 Heart rate 79 /min Dr. Garrison Oviedo DO Work Phone: [facility] 02-07-2025 15:26-0400 Respiratory rate 16 /min Dr. Garrison Oviedo DO Work Phone: [facility] 02-07-2025 15:26-0400 SaO2% (BldA) [Mass fraction] 98 % Dr. Garrison Oviedo DO Work Phone: [facility] 02-07-2025 15:26-0400 Systolic blood pressure 112 mm[Hg] Dr. Garrison Oviedo DO Work Phone: [facility] 03-29-2023 15:35-0400 Body height 176.[address] Garrison Oviedo Work Phone: [facility] 03-29-2023 15:35-0400 Body mass index (BMI) [Ratio] 22.5 kg/m2 Dr. Garrison Oviedo Work Phone: [facility] 03-29-2023 15:35-0400 Body temperature 98.9 [degF] Dr. Garrison Oviedo Work Phone: [facility] 03-29-2023 15:35-0400 Body weight 70.[address] Garrison Oviedo Work Phone: [facility] 03-29-2023 15:35-0400 Diastolic blood pressure 68 mm[Hg] Dr. Garrison Oviedo Work Phone: [facility] 03-29-2023 15:35-0400 Heart rate 78 /min Dr. Garrison Oviedo Work Phone: [facility] 03-29-2023 15:35-0400 Respiratory rate 16 /min Dr. Garrison Oviedo Work Phone: [facility] 03-29-2023 15:35-0400 SaO2% (BldA) [Mass fraction] 98 % Dr. Garrison Oviedo Work Phone: [facility] 03-29-2023 15:35-0400 Systolic blood pressure 108 mm[Hg] Dr. Garrison Oviedo Work Phone: [facility] 12-23-2022 16:41-0500 Body height 176.[address] Garrison Oviedo Work Phone: [facility] 12-23-2022 16:41-0500 Body mass index (BMI) [Ratio] 22.4 kg/m2 Dr. Garrison Oviedo Work Phone: [facility] 12-23-2022 16:41-0500 Body temperature 97.5 [degF] Dr. Garrison Oviedo Work Phone: [facility] 12-23-2022 16:41-0500 Body weight 69.[address] Garrison Oviedo Work Phone: [facility] 12-23-2022 16:41-0500 Diastolic blood pressure 74 mm[Hg] Dr. Garrison Oviedo Work Phone: [facility] 12-23-2022 16:41-0500 Heart rate 70 /min Dr. Garrison Oviedo Work Phone: [facility] 12-23-2022 16:41-0500 Respiratory rate 12 /min Dr. Garrison Oviedo Work Phone: [facility] 12-23-2022 16:41-0500 SaO2% (BldA) [Mass fraction] 99 % Dr. Garrison Oviedo Work Phone: [facility] 12-23-2022 16:41-0500 Systolic blood pressure 112 mm[Hg] Dr. Garrison Oviedo Work Phone: [facility] Encounters Encounter Date Encounter Type Care Provider Facility Start: 05-18-2025 End: 05-18-[address] Garrison Oviedo DO Work Phone: -[facility] Start: 05-18-2025 End: 05-18-[address] Garrison Finch DO -[facility] Work Phone: Start: 02-07-2025 End: 02-07-[address] Garrison Finch DO -[facility] Work Phone: Start: 02-07-2025 End: 02-07-2025 ambulatory Garrison Oviedo Facility:[facility] Start: 11-08-2024 End: 11-08-2024 ambulatory Garrison Oviedo Facility:[facility] Start: 06-28-2024 End: 06-29-2024 ambulatory Garrison Oviedo Facility:[facility] Start: 03-29-2024 End: 03-29-2024 ambulatory Garrison Oviedo Facility:[facility] Start: 03-29-2024 End: 03-29-2024 ambulatory Garrison Oviedo Facility:[facility] Start: 03-29-2023 End: 03-29-[address] Garrison Oviedo Work Phone: [facility] Work Phone: Start: 03-29-2023 End: 03-29-[address] Garrison Oviedo Work Phone: [facility] Start: 01-28-2023 End: 01-28-[address] Garrison Oviedo Work Phone: [facility] Work Phone: Start: 01-28-2023 End: 01-28-[address] Garrison Oviedo Work Phone: [facility] Start: 12-23-2022 End: 12-23-[address] Garrison Oviedo Work Phone: [facility] Plan of Treatment Date Care Activity Detail Author Start: 05-18-2025 Comprehensive metabo lic 2000 panel - Serum or Plasma [facility] Start: 05-18-2025 Lipid 1996 panel - Serum or Plasma [facility] Alanine aminotransfe rase [Enzymatic activity/volume] in Serum or Plasma [facility] Albumin [Mass/volume ] in Serum or Plasma [facility] Alkaline phosphatase [Enzymatic activity/volume] in Serum or Plasma [facility] Anion gap in Serum or Plasma [facility] Bilirubin, total measurement [facility] BUN/Creatinine ratio [facility] Calcium [Mass/volume ] in Serum or Plasma [facility] Carbon dioxide, tota l [Moles/volume] in Central venous blood [facility] Cholesterol [Mass/vo lume] in Serum or Plasma [facility] Cholesterol in HDL [ Mass/volume] in Serum or Plasma [facility] Creatinine [Mass/vol ume] in Serum or Plasma [facility] Glucose [Mass/volume ] in Serum or Plasma [facility] Low density lipoprot ein cholesterol measurement [facility] Measurement of renal function [facility] Potassium measurement [facility] Serum chloride measurement [facility] Sodium measurement [facility] Total cholesterol:HD L ratio measurement [facility] Total protein measurement [facility] Triglycerides measurement [facility] Urea nitrogen [Mass/ volume] in Serum or Plasma [facility] VLDL cholesterol measurement [facility] Payers Date Payer Category Payer Self-pay [id number] 2023 Unknown [id number] Unknown [id number] 2.16.8 [id number] Unknown [id number] 2.16.8 [id number] Unknown [id number] 2.16.8 [id number] Unknown [id number] 2.16.8 [id number] Unknown [id number] 2.16.8 [id number] Unknown [id number] 2.16.8 [id number] Social History Date Type Detail Facility Start: 12-23-2022 End: 03-29-2023 Tobacco smoking status NHIS Unknown if ever smoked [facility] Start: 1965 Sex Assigned At Male [facility] Start: 12-29-2023 Tobacco smoking stat us PAIS Never smoked tobacco (finding) [facility] Medical Equipment Procedure Code Equipment Code Equipment Origin al Text Equipment Identifier Dates Blood Sugar Diagnostic (Freestyle Test) strip Start: 04-07-2019 Lancets (Freesty le Lancets) 28 gauge misc Start: 04-07-2019 Blood Sugar Diagnostic (Freestyle Test) strip Start: 04-07-2019 Lancets (Freesty le Lancets) 28 gauge misc Start: 04-07-2019 Blood Sugar Diagnostic (Freestyle Test) strip Start: 04-07-2019 Lancets (Freesty le Lancets) [facility] Start: 04-07-2019 Progress note 05-18-2025 Note Date & Type Note Facility 05-18-2025 Progress note [facility] Progress note 05-18-2025 Note Date & Type Note Facility 05-18-2025 Progress note Note Date/Time May 18, 2025 3:48pm [facility] [address] [place] [address] [place] [address] OFFICE VISIT Date of Service: 05/18/25 MR#: [id number] Acct: [id number] Name: ELENA REYNA Rep #: [id number] : 1965 Provider: Dr. Rome Oviedo DO Age/Sex: 59/M Location: [facility] Status: Signed Intake Vital Signs 02/07/25 15:26 05/18/25 15:25 Height 5 ft 9 in 5 ft 9 in Weight: 156 lb 8 oz 157 lb BMI 23.1 23.1 BP 112/76 138/72 H Blood Pressure Location Rt brachial Lt brachial Position Sitting Sitting Respiration 16 18 Pulse 79 82 Pulse Source Monitor Monitor Temp 96.7 F L 98.0 F Temp Source Temporal Temporal Pulse Oximetry (%) 98 99 Oxygen Delivery Method room air room air Intake Visit Reasons: 3 M FU Chief Complaint: 3 M FU Is patient in pain?: No Allergies amoxicillin Allergy (Intermediate, Verified 05/18/25 15:24) Rash Medications ?Medication ?Instructions ?Recorded ?Confirmed ?Type blood-glucose meter #1 ea 04/03/19 05/18/25 Rx blood sugar diagnostic (FreeStyle #100 ea 04/07/1911/11 Rx Test strips) lancets 28 gauge (FreeStyle #100 ea 04/07/19 05/18/25 Rx Lancets) flash glucose scanning reader #1 ea 09/30/23 05/18/25 Rx (FreeStyle Aysha 14 Day [place]) flash glucose sensor (FreeStyle #1 ea 12/27/24 5 Rx Aysha 14 Day Sensor kit) dapagliflozin propanediol 10 mg 10 mg PO DAILY #90 tab s 01/02/25 05/18/25 Rx tablet metformin 500 mg tablet 1,000 mg (2 x 500 mg) PO BID #240 01/30/25 05/18/25 Rx TABLETS rosuvastatin 5 mg tablet (Crestor) 5 mg PO DAILY #90 t abs 02/07/25 05/18/25 Rx Have you fallen in the past year?: No PFSH Medical History Shoulder pain Hyperlipemia Type 2 diabetes mellitus Surgical History History of tonsillectomy Family History Mother Diabetes Father Dementia Social History Smoking Status: Never smoker alcohol intake: current alcohol intake frequency: a few times a week Alcohol type: beer substance use type: does not use what type of physical activity do you participate in: none HPI HPI Chief Complaint: 3 M FU Details: ELENA REYNA, is a 59 M who presents to the office today for routine 3-month check. He has no complaints and is feeling well. He is not using his constant glucose monitor is much as he used to because he pretty much is figured out the pattern of the foods that cause him the most problems. ROS Const Constitutional: No body ache, chills, excessive sweating, fatigue, fever(s), frequent falls, headache(s), snoring, weight change, sleep problems, abnormal sleep pattern or change in appetite Eyes Eyes: No blurry vision, change in vision, eye pain or Light sensitivity ENT ENT: No abnormal hearing, ear or mastoid pain, tinnitus, nasal congestion, headache(s), neck pain or sore throat Resp Respiratory: No cough, shortness of breath, snoring or wheezing Cardio Cardiology: No chest pain at rest, chest pain with exertion, excessive sweating,shortness of breath, dyspnea on exertion, lightheadedness, orthopnea or palpitations Gastro GI: No abdominal pain, change in bowel habits, constipation, cramping, diarrhea,nausea/dyspepsia or vomiting Genitourinary Male: No burning urination, painful urination, urinary incontinence or urinary frequency Musc Musculoskeletal: No abnormal gait, joint pain, back pain, limited range of motion, neck pain, numbness or tingling Skin Skin: No dry skin, redness, lesions, itchy eyes, rash or wounds Neuro Neurology: No abnormal gait, abnormal hearing, frequent falls, headache(s), memory loss, numbness or tingling Psych Psychiatric: No abnormal sleep pattern, No anxiety, No change in appetite, No irritability, No memory loss and No Thoughts of harming yourself/Others Endo Endocrine: No cold intolerance, excessive sweating, fatigue, flushing, heat intolerance, increased thirst/drinking, increased hunger or weight change Aller/Imm Allergy/Immunologic: No itchy eyes, seasonal allergy symptoms, hives or wheezing Moris/Lymp Hematologic/Lymphatic: No easy bleeding, easy bruising, enlarged lymph nodes or other Exam Const General: cooperative, comfortable and no acute distress Nutritional Appearance: average body habitus and well nourished Orientation: alert and oriented x3 Limitations: mental status not altered HENMT Head: normal to inspection Ears: hearing grossly normal bilaterally Nose: external nose normal Eyes General: appearance normal, both eyes and all related structures Neck Neck: normal visual inspection and full ROM Resp Effort & Inspection: normal respiratory effort, able to speak in complete sentences, symmetric chest movement, normal respiratory pattern, no audible wheezes and no cough Auscultation: Bilateral: Clear to Auscultation Cardio Palpation: normal PMI Rate: regular rate Heart Sounds: S1 normal, S2 normal, normal S1 and S2, no click, no gallops, no murmurs and no rubs GI Inspection: normal to inspection Auscultation: normal bowel sounds, no hyperactive bowel sounds and no hypoactivebowel sounds Palpation: soft and no hepatosplenomegaly Musc Musculoskeletal: No joint tenderness or decreased range of motion Skin General: no rashes or lesions noted, elasticity normal and turgor normal Rashes: no rashes Neuro General: patient alert, patient awake, patient oriented x3 and CN's II-XI intactbilaterally Speech: speech normal Gait: normal gait Motor: muscle tone normal throughout Extrem General: normal to inspection, normal gait, no edema and no pedal edema Psych Appearance: grossly normal Mental Status: mental status grossly normal Affect: normal affect Attitude: cooperative Thought Process: normal Results POC A1C POC A1C 7.0 % Last Edit by Sara Jacobs LPN on 05/18/25 15:35 Coding Level of Care Code Off vis,est,level 3 Diagnoses Type 2 diabetes mellitus without complication, without long-term current use of insulin E11.9 Diabetes mellitus keno terminal operator insulin use: without keno terminal operator use Diabetes mellitus complication status: without complication Assessment and Plan Assessment and Plan (1) Type 2 diabetes mellitus: Status: Chronic Qualifiers: Diabetes mellitus usp insulin use: without keno terminal operator use Diabetesmellitus complication status: without complication Qualified Code(s): E11.9 - Type 2 diabetes mellitus without complications Plan: His hemoglobin A1c is 7.0 showing good diabetic control. He was due for his yearly blood work which was drawn. There is been no change in physical condition or medications. Orders: Orders POC A1C Today E11.9 - Type 2 diabetes mellitus without complications Comprehensive Metabolic Profil Today E11.9 - Type 2 diabetes mellitus without complications Lipid Profile Today E11.9 - Type 2 diabetes mellitus without complications Plan Details Follow Up: 3 Months Clinical Quality Measures Falls Risk Screening/Assistive Devices Have you fallen in the past year?: No 05/18/25 1548 <Electronically signed by Garrison blackwell DO> Date _ Garrison Oviedo DO Cosigner Signature: Date (if applicable) CC: ~ [employer] Work Phone: Evaluation note 02-07-2025 Note Date & Type Note Facility 02-07-2025 Evaluation note Diagnosis Onset Date Resolution Right hand pain acute January 3:17pm Type 2 diabetes mellitus chronic February 07, 2025 3:17pm Type 2 diabetes mellitus chronic May 18, 2025 3:23pm [facility] Work Phone: Evaluation note Note Date & Type Note Facility Evaluation note Diagnosis Onset Date Shoulder pain acute Type 2 diabetes mellitus [facility] Work Phone: Evaluation note Note Date & Type Note Facility Evaluation note Diagnosis Onset Date Shoulder pain acute Type 2 diabetes mellitus chr on Shoulder pain acute Type 2 diabetes mellitus [facility] Work Phone: Reason for referral (narrative) Note Date & Type Note Facility Reason for referral (narrative) No reason for referral information available [facility] Work Phone: Chief Complaint and Reason for Visit Chief Complaint 3 M FU Reason for Visit Shoulder pain Type 2 diabetes mellitus Chief Complaint 3 M FU 3 M FU Reason for Visit Shoulder pain Type 2 diabetes mellitus Shoulder pain Type 2 diabetes mellitus Chief Complaint Admit Date 3 M FU February 07, 2025 3:1 7pm 3 M FU May 18, 2025 3:2 3pm Reason for Visit Admit Date Right hand pain February 07, 2025 3:1 7pm Type 2 diabetes mellitus February 07 3:17pm Type 2 diabetes mellitus May 18 3:23pm Summary Purpose Family History No Family History Records Found Advance Directives No Advanced Directives Records Found Additional Source Comments Care Teams (unrecognized sec tion and content) Team Status: Active Member Role Status Dates Dr. Garrison Oviedo DO Family Provider Active Dr. Garrison Oviedo DO Primary Care Provider Active Team Status: Inactive Member Role Status Dates Dr. Garrison Oviedo DO Primary Care Pr ovider, Attending Provider, Referring Provider Active Team Status: Inactive Member Role Status Dates Dr. Garrison Oviedo DO Primary Care Provider, Attend ing Provider Active Team Status: Active Member Role/Relationship Status Dates Dr. Garrison Oviedo DO Family Provider Active Dr. Garrison Oviedo DO Primary Care Provider Active Team Status: Inactive Member Role/Relationship Status Dates Dr. Garrison Oviedo DO Primary Care Provider Active Start: February 07, 2025 End: February 07, 2025 Dr. Garrison Oviedo DO Attending Provider Active Start: February 07, 2025 End: February 07, 2025 Dr. Garrison Oviedo DO Referring Provider Active Start: February 07, 2025 End: February 07, 2025 Team Status: Inactive Member Role/Relationship Status Dates Dr. Garrison Oviedo DO Primary Care Provider Active Start: May 18, 2025 End: May 18, 2025 Dr. Garrison Oviedo DO Attending Provider Active Start: May 18, 2025 End: May 18, 2025 Dr. Garrison Oviedo DO Referring Provider Active Start: May 18, 2025 End: May 18, 2025 Team Status: Active Member Role/Relationship Status Dates Dr. Garrison Oviedo DO Primary Care Provider Active Start: May 18, 2025 Dr. Garrison Oviedo DO Attending Provider Active Start: May 18, 2025 Dr. Garrison Oviedo DO Referring Provider Active Start: May 18, 2025 Goals (unrecognized section and content) Goals may be documented in a n alternate sectionGoals may be documented in an alternate sectionGoals may be documented in an alternate section (unrecognized sect ion and content) No Status Records Found INFORMATION SOURCE (unrecogn ized section and content) DATE CREATED AUTHOR 02/09/2025 [facility] FOR RECORDS PERTAINING TO PATIENTS WHO ARE OR HAVE BEEN ENROLLED IN A CHEMICAL DEPENDENCY/SUBSTANCEABUSE PROGRAM, SOME INFORMATION MAY BE OMITTED. This clinical summary was aggregated from multiple sources. Caution should be exercised in using it in the provision of clinical care. This summary normalizes information from multiple sources, and as a consequence, information in this document may materially change the coding, format and clinical context of patient data. In addition, data may be omitted in some cases. CLINICAL DECISIONS SHOULD BE BASED ON THE PRIMARY CLINICAL RECORDS. [employer] [facility]. provides no warranty or guarantee of the accuracy or completeness of information in this document.
== END | disposition home or self-care (01) ==
LOC: BIMLAB 15:45
PROVIDERS: PCP Family Medicine; Referring Provider Family Medicine; Visit Provider Family Medicine
DX: E11.9 Type 2 diabetes mellitus without complications (principal)
CPT/HCPCS: 36415; 80053; 80061